=== PATIENT | male | born 2005 | race Two or more races ===

== ENCOUNTER 2024-06-14 13:26 | Emergency (ER) | payer SELFPAY ==
[~2024-06-14] VITALS: Ht 172.7 cm; Wt 110.0 kg
[2024-06-14 13:47] VITALS: BP 116/90; PULSE 86; RESP 18; TEMP 97.8; O2SAT 100
== END 2024-06-14 19:29 | disposition left against medical advice (07) ==
LOC: ER 13:27
DX: R10.31 Right lower quadrant pain (principal); Z53.21 Procedure and treatment not carried out due to patient leaving prior to being seen by health care provider